=== PATIENT | female | born 1945 | race Caucasian/White ===

== ENCOUNTER 2023-07-24 08:02 | Outpatient (OUT) | payer MEDICARE, BC, SELFPAY ==
[2023-07-24 08:40] LABS: Basophils Absolute Auto 0.2 10^3/uL (0.0-0.1); Basophils Percent Auto 1.2 % (0.2-2.0); Eosinophils Absolute Auto 0.3 10^3/uL (0.0-0.7); Eosinophils Percent Auto 2.2 % (0.9-7.0); Hematocrit 54.1 % (36.0-48.0); Hemoglobin 17.3 g/dL (12.0-16.0); Immature Granulocytes Abs Auto 0.06 10^3/uL (0.00-0.03); Immature Granulocytes Pct Auto 0.4 % (0.0-0.5); Lymphocytes Absolute Auto 3.6 10^3/uL (1.2-3.8); Lymphocytes Percent Auto 26.6 % (20.5-60.0); Mean Corpuscular Hemoglobin 29.9 pg (26.7-34.0); Mean Corpuscular Volume 93.6 fL (81.0-99.0); Mean Platelet Volume 9.6 fL (9.5-13.5); Monocytes Absolute Auto 1.1 10^3/uL (0.3-0.8); Monocytes Percent Auto 7.8 % (1.7-12.0); Neutrophils Absolute Auto 8.4 10^3/uL (1.4-6.5); Neutrophils Percent Auto 61.8 % (43.0-75.0); Platelet Count 267 10^3/uL (150-450); Red Blood Count 5.78 10^6/uL (4.20-5.40); Red Cell Distribution Width 14.8 % (11.0-15.0); White Blood Count 13.7 10^3/uL (4.0-11.0)
[2023-07-24 09:03] LABS: Estimated Average Glucose 120 mg/dL; Glycohemoglobin A1C 5.8 % (4.5-6.2)
[2023-07-24 09:28] LABS: Alanine Aminotransferase 23 U/L (14-59); Albumin Globulin Ratio 0.9; Albumin Level 3.6 g/dL (3.4-5.0); Alkaline Phosphatase 88 U/L (46-116); Anion Gap 12.1; Aspartate Amino Transferase 20 U/L (15-37); Bilirubin Direct 0.1 mg/dL (0.0-0.2); Bilirubin Total 0.5 mg/dL (0.2-1.0); Carbon Dioxide 26.5 mmol/L (21.0-32.0); Chloride 105 mmol/L (98-107); Chol HDL Ratio 2.1; Cholesterol 109 mg/dL (<=200); Estimated GFR (African America >60 (>=60); Estimated GFR (Non-African Ame >60 (>=60); HDL Cholesterol 51 mg/dL (40-60); LDL Cholesterol Calculated 28.6 mg/dL; Potassium 4.6 mmol/L (3.5-5.1); Sodium 139 mmol/L (136-145); Total Protein 7.6 g/dL (6.4-8.2); Triglycerides 147 mg/dL (<=150); VLDL CHOLESTEROL 29.4 mg/dL
== END 2023-07-24 08:03 | disposition home or self-care (01) ==
DX: E78.00 Pure hypercholesterolemia, unspecified (principal); I10 Essential (primary) hypertension; R73.09 Other abnormal glucose; Z79.899 Other long term (current) drug therapy
CPT/HCPCS: 36415; 80051; 80061; 80076; 82565; 83036; 84443; 84520; 85025

== ENCOUNTER 2024-03-20 08:48 | Outpatient (OUT) | payer MEDICARE, BC, SELFPAY ==
[2024-03-20 09:24] LABS: Basophils Absolute Auto 0.2 10^3/uL (0.0-0.1); Basophils Percent Auto 0.8 % (0.2-2.0); Eosinophils Absolute Auto 0.2 10^3/uL (0.0-0.7); Eosinophils Percent Auto 1.2 % (0.9-7.0); Hematocrit 50.7 % (36.0-48.0); Hemoglobin 16.6 g/dL (12.0-16.0); Immature Granulocytes Abs Auto 0.11 10^3/uL (0.00-0.03); Immature Granulocytes Pct Auto 0.6 % (0.0-0.5); Lymphocytes Absolute Auto 3.3 10^3/uL (1.2-3.8); Lymphocytes Percent Auto 18.2 % (20.5-60.0); Mean Corpuscular HGB Conc 32.7 g/dL (29.9-35.2); Mean Corpuscular Hemoglobin 30.6 pg (26.7-34.0); Mean Corpuscular Volume 93.5 fL (81.0-99.0); Mean Platelet Volume 9.6 fL (9.5-13.5); Monocytes Absolute Auto 1.3 10^3/uL (0.3-0.8); Monocytes Percent Auto 7.4 % (1.7-12.0); Neutrophils Absolute Auto 12.9 10^3/uL (1.4-6.5); Neutrophils Percent Auto 71.8 % (43.0-75.0); Platelet Count 280 10^3/uL (150-450); Red Blood Count 5.42 10^6/uL (4.20-5.40); Red Cell Distribution Width 14.3 % (11.0-15.0)
[2024-03-20 12:10] LABS: Estimated Average Glucose 117 mg/dL; Glycohemoglobin A1C 5.7 % (4.5-6.2)
[2024-03-20 12:36] LABS: Alanine Aminotransferase 21 U/L (14-59); Albumin Globulin Ratio 0.9; Albumin Level 3.7 g/dL (3.4-5.0); Alkaline Phosphatase 102 U/L (46-116); Anion Gap 17.5; Aspartate Amino Transferase 17 U/L (15-37); Bilirubin Direct 0.2 mg/dL (0.0-0.2); Bilirubin Total 0.9 mg/dL (0.2-1.0); Carbon Dioxide 23.7 mmol/L (21.0-32.0); Chloride 102 mmol/L (98-107); Chol HDL Ratio 2.3; Cholesterol 112 mg/dL (<=200); Estimated GFR (African America >60 (>=60); Estimated GFR (Non-African Ame 57 (>=60); Globulin 3.9 g/dL; HDL Cholesterol 49 mg/dL (40-60); LDL Cholesterol Calculated 38.4 mg/dL; Potassium 4.2 mmol/L (3.5-5.1); Sodium 139 mmol/L (136-145); Thyroid Stimulating Hormone 1.626 uIU/mL (0.358-3.740); Total Protein 7.6 g/dL (6.4-8.2); Triglycerides 123 mg/dL (<=150); VLDL CHOLESTEROL 24.6 mg/dL
== END 2024-03-20 08:49 | disposition home or self-care (01) ==
LOC: LAB 08:50
PROVIDERS: PCP Internal Medicine; Visit Provider Internal Medicine
DX: Z79.899 Other long term (current) drug therapy (principal); E78.00 Pure hypercholesterolemia, unspecified; R73.09 Other abnormal glucose; I50.40 Unspecified combined systolic (congestive) and diastolic (congestive) heart failure; I11.0 Hypertensive heart disease with heart failure
CPT/HCPCS: 36415; 80051; 80061; 80076; 82565; 83036; 83880; 84443; 84520; 85025

== ENCOUNTER 2024-12-23 07:39 | Outpatient (OUT) | payer MEDICARE, BC, SELFPAY ==
[2024-12-23 08:04] LABS: Basophils Absolute Auto 0.1 10^3/uL (0.0-0.1); Basophils Percent Auto 0.8 % (0.2-2.0); Eosinophils Absolute Auto 0.4 10^3/uL (0.0-0.7); Eosinophils Percent Auto 2.4 % (0.9-7.0); Hematocrit 49.9 % (36.0-48.0); Hemoglobin 16.4 g/dL (12.0-16.0); Immature Granulocytes Abs Auto 0.06 10^3/uL (0.00-0.03); Immature Granulocytes Pct Auto 0.4 % (0.0-0.5); Lymphocytes Absolute Auto 3.6 10^3/uL (1.2-3.8); Lymphocytes Percent Auto 25.1 % (20.5-60.0); Mean Corpuscular HGB Conc 32.9 g/dL (29.9-35.2); Mean Corpuscular Hemoglobin 30.3 pg (26.7-34.0); Mean Corpuscular Volume 92.1 fL (81.0-99.0); Mean Platelet Volume 9.2 fL (9.5-13.5); Monocytes Absolute Auto 0.9 10^3/uL (0.3-0.8); Monocytes Percent Auto 6.3 % (1.7-12.0); Neutrophils Absolute Auto 9.3 10^3/uL (1.4-6.5); Platelet Count 285 10^3/uL (150-450); Red Blood Count 5.42 10^6/uL (4.20-5.40); Red Cell Distribution Width 13.9 % (11.0-15.0); White Blood Count 14.4 10^3/uL (4.0-11.0)
[2024-12-23 08:13] LABS: Estimated Average Glucose 111 mg/dL; Glycohemoglobin A1C 5.5 % (4.5-6.2)
[2024-12-23 08:47] LABS: Alanine Aminotransferase 21 U/L (14-59); Albumin Globulin Ratio 0.9; Albumin Level 3.4 g/dL (3.4-5.0); Alkaline Phosphatase 103 U/L (46-116); Anion Gap 12.2; Aspartate Amino Transferase 23 U/L (15-37); Bilirubin Direct 0.2 mg/dL (0.0-0.2); Bilirubin Total 0.5 mg/dL (0.2-1.0); Chloride 105 mmol/L (98-107); Chol HDL Ratio 2.1; Cholesterol 100 mg/dL (<=200); Estimated GFR (African America 60 (>=60 mL/min/1.73m^2); Estimated GFR (Non-African Ame 49 (>=60 mL/min/1.73m^2); Globulin 3.8 g/dL; HDL Cholesterol 48 mg/dL (40-60); LDL Cholesterol Calculated 29.8 mg/dL; Potassium 4.2 mmol/L (3.5-5.1); Sodium 142 mmol/L (136-145); Thyroid Stimulating Hormone 2.013 uIU/mL (0.358-3.740); Total Protein 7.2 g/dL (6.4-8.2); Triglycerides 111 mg/dL (<=150); VLDL CHOLESTEROL 22.2 mg/dL
== END 2024-12-23 07:40 | disposition home or self-care (01) ==
LOC: LAB 07:42
PROVIDERS: PCP Internal Medicine; Visit Provider Internal Medicine
DX: Z79.899 Other long term (current) drug therapy (principal); I10 Essential (primary) hypertension; R73.09 Other abnormal glucose; E78.00 Pure hypercholesterolemia, unspecified; R06.02 Shortness of breath
CPT/HCPCS: 36415; 80051; 80061; 80076; 82565; 83036; 84443; 84520; 85025

== ENCOUNTER 2025-04-18 06:43 | Outpatient (OUT) | payer MEDICARE, BC, SELFPAY ==
[2025-04-18 07:27] LABS: Estimated Average Glucose 114 mg/dL; Glycohemoglobin A1C 5.6 % (4.5-6.2)
[2025-04-18 07:59] LABS: Anion Gap 14.7; Chloride 106 mmol/L (98-107); Estimated GFR (African America 58 (>=60 mL/min/1.73m^2); Estimated GFR (Non-African Ame 48 (>=60 mL/min/1.73m^2); Potassium 4.7 mmol/L (3.5-5.1); Sodium 143 mmol/L (136-145)
== END 2025-04-18 06:44 | disposition home or self-care (01) ==
LOC: LAB 06:44
PROVIDERS: PCP Internal Medicine; Visit Provider Internal Medicine
DX: R73.09 Other abnormal glucose (principal); I10 Essential (primary) hypertension
CPT/HCPCS: 36415; 80051; 82565; 83036; 84443; 84520

== ENCOUNTER 2025-11-18 12:58 | Emergency (ER) | payer MEDICARE, BC, SELFPAY ==
[2025-11-18 13:26] VITALS: BP 186/74; PULSE 72; TEMP 36.6; O2SAT 94; BMI 24.0
[2025-11-18 14:07] LABS: Hematocrit 49.0 % (36.0-48.0); Hemoglobin 16.0 g/dL (12.0-16.0); Immature Granulocytes Abs Auto 0.07 10^3/uL (0.00-0.03); Immature Granulocytes Pct Auto 0.5 % (0.0-0.5); Lymphocytes Absolute Auto 3.4 10^3/uL (1.2-3.8); Mean Corpuscular HGB Conc 32.7 g/dL (29.9-35.2); Mean Corpuscular Hemoglobin 30.1 pg (26.7-34.0); Mean Corpuscular Volume 92.3 fL (81.0-99.0); Platelet Count 283 10^3/uL (150-450); Red Blood Count 5.31 10^6/uL (4.20-5.40); White Blood Count 14.5 10^3/uL (4.0-11.0)
--- OUTSIDE RECORDS SUMMARY | 2025-11-18 14:19 | XMS_ITS | Clinical Summary ---
Author Organization [facility] Address [id number] 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 Phone Alexia Waite DO, Charles L Primary Care Provider Allergies Active AllergyReactionsCriticalityNoted DateCommentsSulfa (Sulfonamide Antibiotics)2020 Medications MedicationSigDispense QuantityRefillsLast FilledStart DateEnd DateStatus amLODIPine (NORVASC) 5 mg tablet Take 5 mg by mouth daily.05/17/2020Active aspirin 81 mg chewable tablet daily.Active atorvastatin (LIPITOR) 40 mg tablet 06/21/2020Active busPIRone (BUSPAR) 15 mg tablet Take 30 mg by mouth 2 (two) times a day.05/09/2020Active carvediloL (COREG) 12.5 mg tablet 06/21/2020Active irbesartan (AVAPRO) 300 mg tablet 06/21/2020Active QUEtiapine (SEROquel) 25 mg tablet quetiapine 25 mg tabletActive Active Problems ProblemNoted DateDiagnosed DateCerebral arteriovenous uqmvkkhqtxyu03/05/2020 Essential crhigyzusnjr85/05/2020History of intracerebral hemorrhage without residual pjcvpat9006/26/2020 Social History Tobacco UseTypesPacks/DayYears UsedDateSmoking Tobacco: Every DaySmokeless Tobacco: NeverAlcohol UseStandard Drinks/WeekCommentsNot Currently0 (1 standard drink = 0.6 oz pure alcohol)PHQ-2AnswerDate RecordedTotal [id number] ChildcareAnswerDate PlenwcfoUtcxddgwdKjisdzi57/12/2019EmploymentAnswerDate MjmxtavvOdxjqugbsiVoazwse89/12/2019Purpose - LifeAnswerDate RecordedPurpose and direction in svlqSoouqft23/11/2021CommentsUnknownSex and Gender InformationValueDate RecordedSex Assigned at BirthNot on fileLegal SexFemale 06/27/2015 11:55 AM EDTGender IdentityNot on fileSexual OrientationNot on file Last Filed Vital Signs Vital SignReadingTime TakenCommentsBlood [place]136/8206/26/2020 1:49 PM EDT Abtmm702306/26/2020 1:49 PM EDTTemperature--Respiratory Rate--Oxygen Saturation-- Inhaled Oxygen Concentration--Wxynha95.5 kg (173 lb)2020 1:49 PM EDTHeight 170.2 cm (5' 7 )2020 1:49 PM EDTBody Mass Index27. 1:49 PM EDT Plan of Treatment Health MaintenanceDue DateLast DoneCommentsDepression Vkfzposrs70/05/1955Tobacco Tsvoxdgab95/05/1955DTaP,Tdap and Td Vaccines (1 - Tdap)1962Zoster (Shingles) Vaccine (1 of 2)1993Fall Risk Jfjdkjlzs46/05/2008RSV ( or age 60+ yrs) (1 - 1-dose 75+ series)2018Influenza Plvxcvh2507/23/2025 08/22/2016 Medical Devices Not on file Insurance Care Teams Team MemberRelationshipSpecialtyStart DateEnd Date Daryl Hale Jr., DO [address] [place] [address] PCP - GeneralInternal Medicine02/28/18
[2025-11-18 14:32] LABS: Anion Gap 13.3; Blood Urea Nitrogen 17.0 mg/dL (7.0-18.0); Calcium 9.1 mg/dL (8.5-10.1); Carbon Dioxide 27.1 mmol/L (21.0-32.0); Chloride 107 mmol/L (98-107); Estimated GFR (African America >60 (>=60 mL/min/1.73m^2); Estimated GFR (Non-African Ame >60 (>=60 mL/min/1.73m^2); Glucose 104 mg/dL (74-106); NT Pro B Type Natriuretic Pept 449.0 pg/mL (<=1800.0); Potassium 4.4 mmol/L (3.5-5.1); Sodium 143 mmol/L (136-145)
--- NOTE | 2025-11-18 15:53 | ED.GENADUL1 ---
HPI HPI - General Adult General Chief complaint: Extremity Problem, Nontraumatic Stated complaint: RIGHT LEG SEEPAGE COMING THROUGH THE SKIN Time Seen by Provider: 11/18/25 13:29 Source: patient and family Mode of arrival: Wheelchair History of Present Illness HPI narrative: Patient is an 80-year-old female, history significant for CKD, presented to the emergency department for evaluation of right lower extremity swelling. Patient states that she has chronic swelling of the right foot. However, over the last week to week and a half she has been having increasing swelling that is now up to the mid calf. She denies any significant pain with the swelling. She denies shortness of breath or chest pain. No history of DVT/PE. No recent surgeries or immobilizations. No hemoptysis. No history of cancer. No trauma to the leg. Denies history of CHF. No fevers or chills or flulike symptoms. Related Data Home Medications ?Medication ?Instructions ?Recorded ?Confirmed acetaminophen 500 mg capsule 500 mg PO Q6H PRN fever or pain 11/18/25 11/18/25 aspirin 81 mg tablet,delayed 81 mg PO DAILY 11/18/25 11/18/25 release (Adult Low Dose Aspirin) atorvastatin 40 mg tablet mg 11/18/25 buspirone 15 mg tablet mg 11/18/25 carvedilol 12.5 mg tablet mg 11/18/25 irbesartan 300 mg tablet mg 11/18/25 multivitamin (Daily Multi-Vitamin 1 tab PO DAILY 11/18/25 11/18/25 tablet) spironolactone 50 mg tablet 25 mg PO .mwf 11/18/25 11/18/25 terbinafine HCl 250 mg tablet mg 11/18/25 Previous Rx's ?Medication ?Instructions ?Recorded doxycycline hyclate 100 mg capsule 100 mg PO BID 7 days #14 caps 11/18/25 Allergies Allergy/AdvReac Type Severity Reaction Status Date / Time Sulfa (Sulfonamide Allergy Intermediate hives Verified 11/18/25 13:25 Antibiotics) Opioid HPI Opioid Management Most Recent Opioid Data: Last Pain Scale 5 Today, 13:26 Review of Systems ROS Status of ROS 10 or more systems reviewed and unremarkable except as noted in history and below PFSH PFSH Social History Little interest or pleasure in doing things: not at all Feeling down, depressed, or hopeless: not at all Exam Narrative Exam Narrative: CONSTITUTIONAL: Well-appearing, answering questions and following commands appropriately SKIN: Was warm and dry. EYES: Sclerae white. EARS, NOSE, THROAT: Moist oral mucosa. RESPIRATORY: Clear to auscultation bilaterally, no wheezes, crackles, or stridor, no use of accessory muscles CARDIOVASCULAR: Normal rate and regular rhythm. There is no S3, S4, murmur, rub. 2+ DP pulses bilaterally. GASTROINTESTINAL: Abdomen is nondistended. MUSCULOSKELETAL: The right lower extremity has 2+ pitting edema from the feet to the mid calf. There is mild erythema without induration or crepitus. Mild clear fluid draining from the leg. No significant tenderness throughout the leg. No significant warmth throughout the right lower extremity. NEUROLOGIC: Patient is awake and alert. Equal strength and sensation to light touch in the bilateral lower extremities. Facies were symmetrical. Constitutional Vital Signs, click to edit/add: Last Vital Signs Temp 97.8 F 11/18/25 13:26 Pulse 72 11/18/25 13:26 Resp 18 11/18/25 13:26 BP 186/74 H 11/18/25 13:26 Pulse Ox 94 L 11/18/25 13:26 O2 Del Method Room Air 11/18/25 13:26 Course Vital Signs Vital signs: Vital Signs Temperature 97.8 F 11/18/25 13:26 Pulse Rate 72 11/18/25 13:26 Respiratory Rate 18 11/18/25 13:26 Blood Pressure 186/74 H 11/18/25 13:26 Pulse Oximetry 94 L 11/18/25 13:26 Oxygen Delivery Method Room Air 11/18/25 13:26 Temperature 97.8 F 11/18/25 13:26 Pulse Rate 72 11/18/25 13:26 Respiratory Rate 18 11/18/25 13:26 Blood Pressure 186/74 H 11/18/25 13:26 Pulse Oximetry 94 L 11/18/25 13:26 Oxygen Delivery Method Room Air 11/18/25 13:26 Medical Decision Making [facility] Narrative Medical decision making narrative: Patient is an 80-year-old female presenting to the emergency department for evaluation of right lower extremity swelling x 1.5 weeks. Patient's vital signs on arrival were significant for hypertension, otherwise within normal limits. She is afebrile and hemodynamically stable. Right lower extremity is has pitting edema with mild erythema. No significant tenderness. Differential diagnose includes DVT, peripheral edema, worsening renal function, CHF, and less likely cellulitis. Laboratory studies were obtained. Duplex ultrasound was ordered. Duplex ultrasound of the right lower extremity demonstrate no evidence of acute DVT. Mild cobblestoning. Laboratory studies were significant for an elevated D-dimer. No evidence of acute renal injury or significant renal dysfunction. Mild leukocytosis, but at her baseline compared to prior CBCs. BNP nonelevated. No significant electrolyte derangements. I do believe the patient is stable for discharge. Patient's presentation is most likely consistent with dependent/peripheral edema/venous insufficiency. I have low concern for cellulitis, though there is a moderate amount of erythema. I elected to empirically cover her for cellulitis with doxycycline 100 mg twice daily x 7 days. They were instructed to follow up with her PCP for further care. Return precautions were given including any new or worsening symptoms. Patient understands and agrees to the plan. FINAL IMPRESSION: #Acute right lower extremity edema DISPOSITION: Discharged home CONDITION: Good Medical Records Medical records reviewed: Yes I reviewed the patient's medical records Lab Data Lab results reviewed: Yes I reviewed the patient's lab results Labs: Lab Results 11/18/25 Range/Units 14:02 WBC 14.5 H (4.0-11.0) 10^3/uL RBC 5.31 (4.20-5.40) 10^6/uL Hgb 16.0 (12.0-16.0) g/dL Hct 49.0 H (36.0-48.0) % MCV 92.3 (81.0-99.0) fL MCH 30.1 (26.7-34.0) pg MCHC 32.7 (29.9-35.2) g/dL RDW 14.4 (11.0-15.0) % Plt Count 283 (150-450) 10^3/uL MPV 9.1 L (9.5-13.5) fL Neut % (Auto) 63.9 (43.0-75.0) % Lymph % (Auto) 23.3 (20.5-60.0) % [place] % (Auto) 8.9 (1.7-12.0) % Eos % (Auto) 2.3 (0.9-7.0) % Baso % (Auto) 1.1 (0.2-2.0) % Neut # (Auto) 9.3 H (1.4-6.5) 10^3/uL Lymph # (Auto) 3.4 (1.2-3.8) 10^3/uL [place] # (Auto) 1.3 H (0.3-0.8) 10^3/uL Eos # (Auto) 0.3 (0.0-0.7) 10^3/uL Baso # (Auto) 0.2 H (0.0-0.1) 10^3/uL Abs Immat Gran (auto) 0.07 H (0.00-0.03) 10^3/uL Imm/Tot Granulo (auto) 0.5 (0.0-0.5) % D-Dimer 3.88 H* (<=0.59) mg/L FEU Sodium 143 (136-145) mmol/L Potassium 4.4 (3.5-5.1) mmol/L Chloride 107 (98-107) mmol/L Carbon Dioxide 27.1 (21.0-32.0) mmol/L Anion Gap 13.3 BUN 17.0 (7.0-18.0) mg/dL Creatinine 0.86 (0.55-1.02) mg/dL Est GFR ( Amer) >60 (>=60 mL/min/1.73m^2) Est GFR (Non-Af Amer) >60 (>=60 mL/min/1.73m^2) BUN/Creatinine Ratio 19.8 Glucose 104 (74-106) mg/dL Calcium 9.1 (8.5-10.1) mg/dL NT-Pro-B Natriuret Pep 449.0 (<=1800.0) pg/mL Imaging Data Duplex US RLE: Attestation: I personally reviewed and interpreted this imaging study as follows: Discharge Plan Discharge Chief Complaint: Extremity Problem, Nontraumatic Clinical Impression: Edema, peripheral Patient Disposition: Home, Self-Care Time of Disposition Decision: 14:42 Condition: Good Mode of Transportation: Private Vehicle Prescriptions / Home Meds: New doxycycline hyclate 100 mg capsule 100 mg PO BID 7 Days Qty: 14 0RF No Action atorvastatin 40 mg tablet carvedilol 12.5 mg tablet irbesartan 300 mg tablet spironolactone 50 mg tablet 25 mg PO .mw buspirone 15 mg tablet terbinafine HCl 250 mg tablet acetaminophen 500 mg capsule 500 mg PO Q6H PRN (Reason: fever or pain) aspirin [Adult Low Dose Aspirin] 81 mg tablet,delayed release (DR/EC) 81 mg PO DAILY multivitamin [Daily Multi-Vitamin] Tablet 1 tab PO DAILY Print Language: Finnish Instructions: Edema (ED) Referrals: JESSICA STOCK DO [Primary Care Provider, Family Practice] - 1 week Discharge Date/Time: 11/18/25 15:06
== END 2025-11-18 15:06 | disposition home or self-care (01) ==
PROVIDERS: Emergency Provider Student in an Organized Health Care Education/Training Program; PCP Internal Medicine
DX: R60.0 Localized edema (principal); N18.9 Chronic kidney disease, unspecified; R79.89 Other specified abnormal findings of blood chemistry
CPT/HCPCS: 36415; 80048; 83880; 85025; 85378; 93971; 99284